=== PATIENT | female | born 1990 | race Caucasian/White ===

== ENCOUNTER 2021-02-02 18:45 | Emergency (ER) | payer OTHER ==
[~2021-02-02] VITALS: Ht 165.1 cm; Wt 68.2 kg
[2021-02-02 20:11] VITALS: BP 118/77
== END 2021-02-02 20:40 | disposition left against medical advice (07) ==
LOC: EMS 18:45
DX: R10.30 Lower abdominal pain, unspecified (principal)
CPT/HCPCS: 99281; Z7502

== ENCOUNTER 2022-04-10 13:19 | Emergency (ER) | payer MEDICAID, OTHER ==
[~2022-04-10] VITALS: Ht 165.1 cm; Wt 77.3 kg
[2022-04-10 13:38] VITALS: BP 0/0
[2022-04-10 15:39] LABS: APPEARANCE,URINE HAZY (CLEAR); BILIRUBIN,URINE NEGATIVE (NEGATIVE); GLUCOSE, URINE (UA) NEGATIVE (NEGATIVE); KETONES,URINE NEGATIVE (NEGATIVE); LEUKOCYTE ESTERASE ,URINE LARGE (NEGATIVE); NITRATE,URINE NEGATIVE (NEGATIVE); OCCULT BLOOD,URINE NEGATIVE (NEGATIVE); PH,URINE 5.5 (5.0-8.0); PROTEIN,URINE TRACE mg/dL (NEGATIVE); SPECIFIC GRAVITIY, URINE 1.021 (1.003-1.030); UROBILINOGEN,URINE <=1.0 mg/dL (<=1.0)
[2022-04-10 15:46] LABS: AMPHET/METH SCREEN,URINE NEGATIVE (NEGATIVE); BARBITURATE SCREEN, URINE NEGATIVE (NEGATIVE); BENZODIAZEPINES SCREEN,URINE NEGATIVE (NEGATIVE); CANNABINOID SCREEN,URINE POSITIVE (NEGATIVE); COCAINE SCREEN,URINE NEGATIVE (NEGATIVE); METHADONE SCREEN, URINE NEGATIVE (NEGATIVE); OPIATE SCREEN,URINE NEGATIVE (NEGATIVE)
[2022-04-10 15:47] LABS: BASOPHILS % (AUTO) 0.9 % (0.0-2.0); EOSINOPHILS % (AUTO) 0.7 % (1.0-6.0); HEMATOCRIT 38.5 % (36-46); LYMPHOCYTES # (AUTO) 2.2 K/uL (1.0-4.8); LYMPHOCYTES % (AUTO) 24.8 % (22.0-44.0); MEAN CORPUSCULAR HEMOGLOBIN 29.2 pg (26.0-34.0); MEAN CORPUSCULAR HGB CONC 33.6 G/dL (31.0-37.0); MEAN CORPUSCULAR VOLUME 87 fL (80-100); MONOCYTES # (AUTO) 0.6 K/uL (0.1-1.0); MONOCYTES % (AUTO) 6.6 % (2.0-9.0); NEUTROPHILS # (AUTO) 5.9 K/uL (1.8-7.7); PLATELET COUNT (AUTO) 297 K/uL (150-450); RED BLOOD CELL COUNT(AUTO) 4.44 MIL/uL (4.00-5.20); RED CELL DISTRIBUTION WIDTH 13.9 % (11.5-14.5)
[2022-04-10 15:54] LABS: PHENCYCLIDINE SCREEN,URINE NEGATIVE (NEGATIVE)
[2022-04-10 15:58] LABS: SQUAMOUS EPITHELIAL CELL,UR Many /LPF (None Seen)
[2022-04-10 15:59] LABS: RBC,URINE 0-2 /HPF (0-2)
[2022-04-10 16:00] LABS: BACTERIA,URINE Moderate /HPF (None Seen)
[2022-04-10 16:03] LABS: ANION GAP 11 mmol/L (8-16); CALCIUM, TOTAL 9.5 mg/dL (8.8-10.5); CARBON DIOXIDE 24 mmol/L (22-29); CHLORIDE 104 mmol/L (98-107); CREATININE 0.76 mg/dL (0.60-1.30); GLOMERULAR FILTR. RATE CALC > 60 mL/min (>60); GLUCOSE,RANDOM 100 mg/dL (70-110); SODIUM SERUM 139 mmol/L (136-145); UREA NITROGEN, BLOOD 9 mg/dL (7-18)
[2022-04-10 16:09] LABS: ALANINE AMINOTRANSFERASE 17 U/L (12-78); ALBUMIN 4.2 g/dL (3.4-5.0); ALKALINE PHOSPHATASE 70 U/L (46-116); ASPARTATE AMINOTRANSFERASE 14 U/L (15-37); BILIRUBIN,TOTAL 0.8 mg/dL (0.1-1.0); LIPASE 131 U/L (73-393); TOTAL PROTEIN, SERUM 7.7 g/dL (6.4-8.2)
[2022-04-10] MEDS ORDERED: ACET-66 PO (16:18)
[2022-04-10] MEDS ORDERED: CEPH-558 PO (16:18)
[2022-04-10] MEDS ORDERED: MICO24CM2 VG (16:18)
== END 2022-04-10 16:50 | disposition home or self-care (01) ==
LOC: EMS 13:19
DX: N39.0 Urinary tract infection, site not specified (principal); Z86.59 Personal history of other mental and behavioral disorders
CPT/HCPCS: 80053; 81001; 83690; 84703; 85025; 87086; 99283

== ENCOUNTER 2022-07-20 11:10 | Emergency (ER) | payer MEDICAID ==
[~2022-07-20] VITALS: Ht 167.6 cm; Wt 75.0 kg
[~2022-07-20 11:10] MED LIST: ACET-66 PO; CEPH-558 PO; MICO24CM2 VG
[2022-07-20 11:12] VITALS: BP 1/1
== END 2022-07-20 13:07 | disposition left against medical advice (07) ==
LOC: EMS 11:23
DX: Z53.21 Procedure and treatment not carried out due to patient leaving prior to being seen by health care provider (principal)

== ENCOUNTER 2022-07-20 13:52 | Emergency (ER) | payer MEDICAID | END 2022-07-20 14:40 | disposition left against medical advice (07) | LOC: EMS 14:11 | DX: Z53.21 Procedure and treatment not carried out due to patient leaving prior to being seen by health care provider (principal) ==

== ENCOUNTER 2022-07-23 16:37 | Emergency (ER) | payer MEDICAID | END 2022-07-23 16:55 | disposition left against medical advice (07) | LOC: EMS 16:38 | DX: Z53.21 Procedure and treatment not carried out due to patient leaving prior to being seen by health care provider (principal) ==

== ENCOUNTER 2022-08-31 21:26 | Emergency (ER) | payer MEDICAID ==
[~2022-08-31] VITALS: Ht 165.1 cm; Wt 77.7 kg
[2022-08-31 22:22] VITALS: BP 109/68
[2022-08-31] MEDS ORDERED: ACETAMINOPHEN 500 MG TABLET PO ONE (22:30)
== END 2022-08-31 23:49 | disposition left against medical advice (07) ==
LOC: EMS 21:30
DX: N76.0 Acute vaginitis (principal); E78.00 Pure hypercholesterolemia, unspecified
CPT/HCPCS: 99281; 99282; 99283

== ENCOUNTER 2022-10-07 11:45 | Emergency (ER) | payer MEDICAID ==
[~2022-10-07] VITALS: Ht 170.2 cm; Wt 72.7 kg
[2022-10-07 11:46] VITALS: BP 114/60
== END 2022-10-07 11:59 | disposition left against medical advice (07) ==
LOC: EMS 11:53
DX: S90.829A Blister (nonthermal), unspecified foot, initial encounter (principal); R10.2 Pelvic and perineal pain; E78.00 Pure hypercholesterolemia, unspecified; X58.XXXA Exposure to other specified factors, initial encounter; Y93.89 Activity, other specified; Y92.89 Other specified places as the place of occurrence of the external cause; Y99.8 Other external cause status
CPT/HCPCS: 99281; Z7502

== ENCOUNTER 2022-12-28 17:56 | Emergency (ER) | payer MEDICAID ==
[~2022-12-28] VITALS: Ht 162.6 cm; Wt 70.0 kg
[2022-12-28 18:30] VITALS: BP 110/64
[2022-12-28] MEDS ORDERED: BACITRACIN 28 GM OINTMENT TP ONE (18:30)
== END 2022-12-28 19:30 | disposition home or self-care (01) ==
LOC: EMS 17:57
DX: M79.672 Pain in left foot (principal); R23.4 Changes in skin texture; E78.00 Pure hypercholesterolemia, unspecified; Z59.00 Homelessness unspecified
CPT/HCPCS: 99282; Z7502; Z7610

== ENCOUNTER 2023-02-11 11:54 | Emergency (ER) | payer MEDICAID ==
[~2023-02-11] VITALS: Ht 165.1 cm; Wt 75.0 kg
[2023-02-11 12:00] VITALS: BP 109/73
== END 2023-02-11 12:24 | disposition left against medical advice (07) ==
LOC: EMS 11:59
DX: Z53.21 Procedure and treatment not carried out due to patient leaving prior to being seen by health care provider (principal)
CPT/HCPCS: 99281; Z7502

== ENCOUNTER 2023-03-01 16:02 | Emergency (ER) | payer MEDICAID ==
[~2023-03-01] VITALS: Ht 165.1 cm; Wt 70.5 kg
[2023-03-01 16:30] VITALS: BP 97/54
== END 2023-03-01 17:22 | disposition left against medical advice (07) ==
LOC: EMS 16:02
DX: R10.30 Lower abdominal pain, unspecified (principal); E78.00 Pure hypercholesterolemia, unspecified
CPT/HCPCS: 99283; Z7502

== ENCOUNTER 2024-08-27 17:28 | Emergency (ER) | payer MEDICAID ==
[~2024-08-27 17:28] MED LIST changes: -CEPH-558 PO; +DIVA-153 PO; +DOXY-354 PO; +FLUO-418 PO; +MELA5TAB21 PO; +MELA5TAB40 PO; -MICO24CM2 VG; +OLAN10TA74 PO
== END 2024-08-27 18:53 | disposition left against medical advice (07) ==
LOC: EMS 17:29
DX: Z53.21 Procedure and treatment not carried out due to patient leaving prior to being seen by health care provider (principal)